=== PATIENT | male | born 1950 | race Caucasian/White ===

== ENCOUNTER 2023-09-19 09:31 | Emergency (ER) | payer BC, OTHER ==
[~2023-09-19] VITALS: Ht 175.3 cm; Wt 87.1 kg
[2023-09-19 09:51] VITALS: BP_SYST 143; PULSE 88; RESP 17; TEMP 97.6; O2SAT 96
[2023-09-19 11:10] LABS: BASOPHILS # (AUTO) 0.2 K/uL (0.0-0.2); BASOPHILS % (AUTO) 0.5 % (0.0-2.0); EOSINOPHILS # (AUTO) 0.1 K/uL (0.0-0.4); EOSINOPHILS % (AUTO) 0.4 % (0.0-4.0); HEMATOCRIT 36.6 % (36-54); LYMPHOCYTES # (AUTO) 2.3 K/uL (1.0-5.5); LYMPHOCYTES % (AUTO) 7.5 % (20.5-51.5); MEAN CORPUSCULAR HEMOGLOBIN 29 pg (27-31); MEAN CORPUSCULAR HGB CONC 33 % (32-36); MEAN CORPUSCULAR VOLUME 88 fL (79.0-98.0); MONOCYTES # (AUTO) 2.2 K/uL (0.0-1.0); MONOCYTES % (AUTO) 7.2 % (1.7-9.3); NEUTROPHILS # (AUTO) 25.9 K/uL (1.8-7.7); PLATELET COUNT (AUTO) 694 K/uL (130-430); RED BLOOD CELL COUNT(AUTO) 4.15 MIL/uL (4.2-6.2); RED CELL DISTRIBUTION WIDTH 13.3 % (9.0-15.0)
[2023-09-19 11:23] LABS: WHITE BLOOD COUNT (AUTO) 30.7 K/uL (4.8-10.8)
[2023-09-19 11:28] LABS: PROTHROMBIN TIME 10.7 SECS (9.5-12.5)
[2023-09-19 11:43] LABS: NEUTROPHILS % (AUTO) 84.4 % (40.0-70.0)
[2023-09-19] MEDS ORDERED: ASPI-859 PO (11:47)
[2023-09-19] MEDS ORDERED: SSNOVOLOG SUBCUT (11:47)
[2023-09-19] MEDS ORDERED: LOSA-415 PO (11:47)
[2023-09-19] MEDS ORDERED: MULT-950 PEG (11:47)
[2023-09-19] MEDS ORDERED: SILD50TA PO (11:47)
[2023-09-19] MEDS ORDERED: LEVO25TA7 PO (11:47)
[2023-09-19] MEDS ORDERED: FURO-150 PO (11:47)
[2023-09-19] MEDS ORDERED: CALC-1050 PO (11:47)
[2023-09-19] MEDS ORDERED: LIP20 PO (11:47)
[2023-09-19] MEDS ORDERED: ZOLP10TA2 PO (11:47)
[2023-09-19] MEDS ORDERED: AMLO5TAB4 PO (11:47)
[2023-09-19 12:01] LABS: ALANINE AMINOTRANSFERASE 15 U/L (12-78); ALBUMIN 2.5 g/dL (3.4-4.8); ANION GAP 9 (5-15); ASPARTATE AMINOTRANSFERASE 13 U/L (10-37); CALCIUM 9.4 mg/dL (8.4-11.0); CARBON DIOXIDE 28 mmol/L (23-29); CHLORIDE 98 mmol/L (98-107); CREATININE 1.22 mg/dL (0.55-1.30); GLUCOSE 159 mg/dL (74-106); POTASSIUM 3.7 mmol/L (3.5-5.1); SODIUM SERUM 135 mmol/L (136-145); TOTAL BILIRUBIN 0.5 mg/dL (0.0-1.0); TOTAL PROTEIN, SERUM 7.9 g/dL (6.4-8.3); UREA NITROGEN, BLOOD 9 mg/dL (8-21)
[2023-09-19] MEDS: CLINDAMYCIN 600 mg/50mL D5W 50 ML IV ONE (12:14)
[2023-09-19 12:31] LABS: BILIRUBIN,DIRECT 0.2 mg/dL (0.0-0.3); FREE T4 (FREE THYROXINE) 1.4 ng/dl (0.8-1.5); THYROID STIMULATING HORMONE 1.99 uIu/mL (0.36-3.74)
[2023-09-19] MEDS: MORPHINE 2 MG/ML INJ. SYRINGE IVP ONE (14:25)
[2023-09-19] MEDS ORDERED: PIPERACILLIN/TAZOBACTAM 3.375 GM/VIAL (ZOSYN) IV ONE (16:23)
[2023-09-19] MEDS: PIPERACILLIN/TAZO 3.375 GM in NS 50 ML IV ONE (16:40)
[2023-09-19] MEDS: ONDANSETRON HCL 4 MG/2 ML VIAL IVP ONE (16:58)
[2023-09-19] MEDS: MORPHINE 4 MG INJ. 4 MG/ML VIAL IVP ONE ×2 (17:04→20:28)
[2023-09-19 21:47] VITALS: BP_SYST 150; PULSE 97; RESP 20; TEMP 98.5; O2SAT 95
== END 2023-09-19 21:43 | disposition short-term general hospital (02) ==
LOC: SED 09:31
DX: K12.2 Cellulitis and abscess of mouth (principal); Z79.899 Other long term (current) drug therapy; Z79.2 Long term (current) use of antibiotics
CPT/HCPCS: 99291; 96365; 70491; 96375; 96367; 80076; 80048; 84439; 84443; 85025; 85610; 85730; 87040; 36415; 83605; 82397; 96376; J3490; J2405; J2543; J2270 ×2; Q9967

== ENCOUNTER 2023-11-22 15:04 | Emergency (ER) | payer BC, OTHER ==
[~2023-11-22] VITALS: Ht 172.7 cm; Wt 86.6 kg
[~2023-11-22 15:04] MED LIST: AMLO5TAB4 PO; ASPI-859 PO; CALC-1050 PO; FURO-150 PO; LEVO25TA7 PO; LIP20 PO; LOSA-415 PO; MULT-950 PEG; SILD50TA PO; SSNOVOLOG SUBCUT; ZOLP10TA2 PO
[2023-11-22 15:15] VITALS: BP_SYST 142; PULSE 88; RESP 18; TEMP 98.3; O2SAT 97
[2023-11-22 15:30] VITALS: TEMP 99
[2023-11-22 15:42] LABS: BASOPHILS # (AUTO) 0.2 K/uL (0.0-0.2); BASOPHILS % (AUTO) 2.6 % (0.0-2.0); EOSINOPHILS # (AUTO) 0.6 K/uL (0.0-0.4); EOSINOPHILS % (AUTO) 6.3 % (0.0-4.0); HEMATOCRIT 37.5 % (36-54); LYMPHOCYTES # (AUTO) 3.5 K/uL (1.0-5.5); LYMPHOCYTES % (AUTO) 38.5 % (20.5-51.5); MEAN CORPUSCULAR HEMOGLOBIN 30 pg (27-31); MEAN CORPUSCULAR HGB CONC 35 % (32-36); MEAN CORPUSCULAR VOLUME 88 fL (79.0-98.0); MONOCYTES # (AUTO) 0.6 K/uL (0.0-1.0); MONOCYTES % (AUTO) 7.1 % (1.7-9.3); NEUTROPHILS # (AUTO) 4.1 K/uL (1.8-7.7); NEUTROPHILS % (AUTO) 45.5 % (40.0-70.0); PLATELET COUNT (AUTO) 453 K/uL (130-430); RED BLOOD CELL COUNT(AUTO) 4.28 MIL/uL (4.2-6.2); RED CELL DISTRIBUTION WIDTH 15.2 % (9.0-15.0); WHITE BLOOD COUNT (AUTO) 9.1 K/uL (4.8-10.8)
[2023-11-22 15:53] LABS: ALANINE AMINOTRANSFERASE 15 U/L (12-78); ALBUMIN 3.5 g/dL (3.4-4.8); ANION GAP 8 (5-15); ASPARTATE AMINOTRANSFERASE 20 U/L (10-37); CALCIUM 9.6 mg/dL (8.4-11.0); CARBON DIOXIDE 27 mmol/L (23-29); CHLORIDE 104 mmol/L (98-107); CREATININE 0.96 mg/dL (0.55-1.30); GLUCOSE 192 mg/dL (74-106); POTASSIUM 4.3 mmol/L (3.5-5.1); SODIUM SERUM 139 mmol/L (136-145); TOTAL BILIRUBIN 1.1 mg/dL (0.0-1.0); TOTAL PROTEIN, SERUM 7.4 g/dL (6.4-8.3); UREA NITROGEN, BLOOD 7 mg/dL (8-21)
[2023-11-22] MEDS ORDERED: FURO-150 PO (17:17)
[2023-11-22 17:22] VITALS: BP_SYST 140; PULSE 89; RESP 20; O2SAT 97
[2023-11-22] MEDS: FUROSEMIDE 20 MG TABLET PO ONE (17:38)
== END 2023-11-22 17:45 | disposition home or self-care (01) ==
LOC: SED 15:04
DX: R60.0 Localized edema (principal); E11.9 Type 2 diabetes mellitus without complications; I10 Essential (primary) hypertension; E78.5 Hyperlipidemia, unspecified; Z79.899 Other long term (current) drug therapy; Z79.2 Long term (current) use of antibiotics
CPT/HCPCS: 36415; 80053; 82948; 83880; 85025; 93970; 99285